=== PATIENT | female | born 1940 | race Caucasian/White ===

== ENCOUNTER 2018-06-29 13:33 | Emergency (ER) | payer MEDICARE ==
[2018-06-29 13:54] VITALS: BP 116/74
--- NOTE | 2018-06-29 14:13 | UC ---
Upper Extremity HPI - HPI Summary HPI Summary: pt tripped on a branch and fell injuring her R hand and forearm. occured this am. - History of Current Complaint Chief Complaint: UCUpperExtremity Stated Complaint: RIGHT WRIST INJURY FROM FALL TODAY Time Seen by Provider: 06/29/18 14:07 Hx Obtained From: Patient Onset/Duration: Sudden Onset Pain Intensity: 2 Aggravating Factor(s): Movement Associated Signs And Symptoms: Positive: Swelling, Bruising - Allergies/Home Medications Allergies/Adverse Reactions: Allergies Allergy/AdvReac Type Severity Reaction Status Date / Time clindamycin Allergy Rash And Verified 06/29/18 13:55 Itching Penicillins Allergy Hives Verified 06/29/18 13:55 Home Medications: Home Medications Docusate Sodium [Stool Softener] 100 mg PO DAILY 06/29/18 [History Confirmed 10/06] Metoprolol Tartrate TAB* [Lopressor TAB*] 25 mg PO DAILY 06/29/18 [History Confirmed 06/29/18] Omeprazole CAP* [Prilosec CAP* 20 MG] 20 mg PO DAILY 06/29/18 [History Confirmed 06/29/18] Vitamin B Complex CAP* [B Complex CAP*] 1 cap PO DAILY 06/29/18 [History Confirmed 06/29/18] PMH/Surg Hx/FS Hx/Imm Hx - Additional Past Medical History Additional PMH: Palpitations - Surgical History Surgical History: Yes Surgery Procedure, Year, and Place: hysterectomy, R knee replacement - Family History Known Family History: Positive: None - Social History Occupation: Retired Lives: With Family Alcohol Use: None Substance Use Type: None Smoking Status (MU): Never Smoked Tobacco - Immunization History Vaccination Up to Date: Yes Review of Systems Constitutional: Negative Skin: Negative Eyes: Negative ENT: Negative Respiratory: Negative Cardiovascular: Negative Gastrointestinal: Negative Genitourinary: Negative Motor: Negative Neurovascular: Negative Musculoskeletal: Other: - pain, bruising and swelling R FA and hand Neurological: Negative Psychological: Negative Is Patient Immunocompromised?: No All Other Systems Reviewed And Are Negative: Yes Physical Exam Triage Information Reviewed: Yes Appearance: Well-Appearing Vital Signs: Initial Vital Signs Temp 97.2 F 06/29/18 13:45 Pulse 77 06/29/18 13:45 Resp 16 06/29/18 13:45 BP 116/74 06/29/18 13:45 Pulse Ox 100 08/11/18 13:45 Eyes: Positive: Conjunctiva Clear ENT: Positive: Normal ENT inspection Neck: Positive: Supple, Nontender, No Lymphadenopathy Respiratory: Positive: Lungs clear, Normal breath sounds Cardiovascular: Positive: RRR, No Murmur Abdomen Description: Positive: Nontender, No Organomegaly, Soft Bowel Sounds: Positive: Present Musculoskeletal Exam: Other - Head, neck, back are atraumatic. Musculoskeletal: Positive: Other: - RUE: Shoulder and elbow are atraumatic. Distal forearm with swelling, bruising and tendertness ulnar side. Dorsal hand with brusing, swelling and tenderness. Gross s/v/m intact. Neurological: Positive: Alert Psychological: Positive: Age Appropriate Behavior Skin Exam: Normal Diagnostics - Radiology No standard instances Radiology Interpretation Completed By: Radiologist - IMPRESSION: COMMINUTED NONDISPLACED FRACTURE OF THE DISTAL RADIUS. NO ADDITIONAL FRACTURE IS SEEN. Upper Extremity Course/Dx - Differential Dx/Diagnosis Provider Diagnoses: Non displaced fx R distal radius Discharge - Sign-Out/Discharge Documenting (check all that apply): Patient Departure - Discharge Plan Condition: Stable Disposition: HOME Patient Education Materials: Wrist Fracture in Adults (ED), Splint Care (ED) Referrals: Veronica Nazario PA [Primary Care Provider] - If Needed Tian Olivera MD [Medical Doctor] - 2 Days Additional Instructions: SPLINT AT ALL TIMES UNTIL CLEARED - Billing Disposition and Condition Condition: STABLE Disposition: Home
--- NOTE | 2018-06-29 14:39 | RAD ---
INDICATION: Right hand injury. TECHNIQUE: 4 views of the right hand were obtained. FINDINGS: The bones are osteopenic. There is diffuse soft tissue swelling which is most prominent along the dorsal medial and lateral aspects of the hand and wrist. There is a slightly comminuted nondisplaced fracture of the distal radius. A component appears to extend to the distal articular margin. No other fractures are seen. IMPRESSION: COMMINUTED NONDISPLACED INTRA-ARTICULAR FRACTURE OF THE DISTAL RADIUS.
--- NOTE | 2018-06-29 14:40 | RAD ---
INDICATION: Right forearm injury. TECHNIQUE: 2 views of the right forearm were obtained. FINDINGS: There is diffuse soft tissue swelling in the distal forearm. The bones appear osteopenic. There is a comminuted nondisplaced fracture of the distal radius. No additional fracture is seen. IMPRESSION: COMMINUTED NONDISPLACED FRACTURE OF THE DISTAL RADIUS. NO ADDITIONAL FRACTURE IS SEEN.
== END 2018-06-29 14:58 | disposition home or self-care (01) ==
LOC: UCCORT 13:33
DX: S52.501A Unspecified fracture of the lower end of right radius, initial encounter for closed fracture (principal); W18.09XA Striking against other object with subsequent fall, initial encounter; Y93.9 Activity, unspecified; Y92.9 Unspecified place or not applicable; Z88.0 Allergy status to penicillin; Z88.1 Allergy status to other antibiotic agents
CPT/HCPCS: 99202; G0463

== ENCOUNTER 2020-01-19 10:28 | Emergency (ER) | payer MEDICARE ==
[2020-01-19 10:53] VITALS: BP 122/72
--- NOTE | 2020-01-19 11:24 | UC ---
General HPI - HPI Summary HPI Summary: C/O 1 month of sinus congestion, H/A, nasal discharge, sinus fullness and ear fullness. Sneezing a lot. No fevers. No cough. no SOB. good PO. THinks it may be related to her wood stove that is not new. Frontal headache States she tried an allergy medication this morning but not sure what it is Meds; reviewed is in a snf and worried to visit him because does not want to get him sick - History of Current Complaint Chief Complaint: UCGeneralIllness Stated Complaint: LEA/CONGESTION Time Seen by Provider: 01/19/20 11:10 Pain Intensity: 3 - Allergy/Home Medications Allergies/Adverse Reactions: Allergies Allergy/AdvReac Type Severity Reaction Status Date / Time clindamycin Allergy Rash And Verified 01/19/20 10:48 Itching Penicillins Allergy Hives Verified 01/19/20 10:48 Home Medications: Home Medications Docusate Sodium [Stool Softener] 100 mg PO DAILY PRN 06/29/18 [History Confirmed 01/19/20] Metoprolol Tartrate TAB* [Lopressor TAB*] 25 mg PO DAILY 06/29/18 [History Confirmed 01/19/20] Omeprazole CAP (NF) [Prilosec CAP* 20 MG] 20 mg PO DAILY 06/29/18 [History Confirmed 01/19/20] Vitamin B Complex CAP* [B Complex CAP*] 1 cap PO DAILY 06/29/18 [History Confirmed 01/19/20] DOXYcycline CAP(*) [DOXYcycline 100MG CAP(*)] 100 mg PO BID #10 cap 01/19/20 [Rx ] PMH/Surg Hx/FS Hx/Imm Hx Previously Healthy: Yes Cardiovascular History: Hypertension GI/ History: Gastroesophageal Reflux - Surgical History Surgical History: Yes Surgery Procedure, Year, and Place: hysterectomy. R knee replacement. L knee. hemrroidectomy. basal cell carcinoma removal on forehead - Family History Known Family History: Positive: None - Social History Alcohol Use: None Substance Use Type: None Smoking Status (MU): Never Smoked Tobacco - Immunization History Vaccination Up to Date: Yes Review of Systems All Other Systems Reviewed And Are Negative: Yes ENT: Positive: Nasal Discharge, Sinus Congestion, Sinus Pain/Tenderness Physical Exam Triage Information Reviewed: Yes Vital Signs: Initial Vital Signs Temp 98.4 F 01/19/20 10:49 Pulse 75 01/19/20 10:49 Resp 16 01/19/20 10:49 BP 122/72 01/19/20 10:49 Pulse Ox 97 01/19/20 10:49 Eyes: Positive: Conjunctiva Clear ENT: Positive: Pharyngeal erythema, Nasal congestion, Nasal drainage, Sinus tenderness, Other - TM: clear fluid in right TM Nares: edematous and erythematous Neck: Positive: Supple, Nontender Respiratory: Positive: Lungs clear, Normal breath sounds Cardiovascular: Positive: RRR, No Murmur Course/Dx - Course Course Of Treatment: This is a 79 yr old with Sinus symptoms Suspect allergy Recommend starting Zyrtec also known as cetirizine 5 mg daily Continue nasal spray as directed Stop generic medicine you started today If symptoms haven't improved over the next 2 days with the zyrtec and nasal spray then recommend starting doxycycline as prescribed If symptoms persist or worsen or you develop high fevers and/or cough, recommend follow up with PCP or return to urgent care - Diagnoses Provider Diagnosis: Sinusitis Discharge ED - Sign-Out/Discharge Documenting (check all that apply): Patient Departure All imaging exams completed and their final reports reviewed: No Studies - Discharge Plan Condition: Good Disposition: HOME Prescriptions: DOXYcycline CAP(*) [DOXYcycline 100MG CAP(*)] 100 mg PO BID #10 cap Patient Education Materials: Sinusitis (ED) Referrals: Veronica Nazario PA [Primary Care Provider] - Additional Instructions: Recommend starting Zyrtec also known as cetirizine 5 mg daily Continue nasal spray as directed Stop generic medicine you started today If symptoms haven't improved over the next 2 days with the zyrtec and nasal spray then recommend starting doxycycline as prescribed If symptoms persist or worsen or you develop high fevers and/or cough, recommend follow up with PCP or return to urgent care - Billing Disposition and Condition Condition: GOOD Disposition: Home
== END 2020-01-19 11:31 | disposition home or self-care (01) ==
LOC: UCCORT 10:28
DX: J32.9 Chronic sinusitis, unspecified (principal); I10 Essential (primary) hypertension; K21.9 Gastro-esophageal reflux disease without esophagitis; Z85.828 Personal history of other malignant neoplasm of skin; Z88.0 Allergy status to penicillin; Z88.1 Allergy status to other antibiotic agents; Z79.899 Other long term (current) drug therapy
CPT/HCPCS: 99212; G0463